=== PATIENT | female | born 1975 | race Caucasian/White ===

== ENCOUNTER 2017-04-05 15:30 | Emergency (ER) | payer BC ==
[~2017-04-05] VITALS: Ht 162.6 cm; Wt 71.1 kg
[2017-04-05 15:36] VITALS: BP 115/86
[2017-04-05] MEDS ORDERED: AMOX-422 PO (16:06)
== END 2017-04-05 16:17 | disposition home or self-care (01) ==
LOC: ER 15:31
DX: J32.9 Chronic sinusitis, unspecified (principal); F17.210 Nicotine dependence, cigarettes, uncomplicated; Z71.6 Tobacco abuse counseling
CPT/HCPCS: 99283; 99406

== ENCOUNTER 2017-08-16 17:30 | Emergency (ER) | payer BC ==
[~2017-08-16] VITALS: Ht 162.6 cm; Wt 74.3 kg
[2017-08-16 17:48] VITALS: BP 125/80
== END 2017-08-16 19:13 | disposition home or self-care (01) ==
LOC: ER 17:31
DX: H91.93 Unspecified hearing loss, bilateral (principal)
CPT/HCPCS: 99281